=== PATIENT | male | born 1950 | race Caucasian/White ===

== ENCOUNTER 2020-04-03 10:53 | Emergency (ER) | payer MEDICARE ==
[~2020-04-03] VITALS: Ht 177.8 cm; Wt 113.6 kg
--- NOTE | 2020-04-03 11:05 | ED Head Injury ---
General Chief Complaint: Laceration Stated Complaint: HEAD LAC Source: patient Exam Limitations: no limitations History of Present Illness Date Seen by Provider: April 03, 2020 Time Seen by Provider: 11:03 Initial Comments Patient tripped and fell this morning striking his head with loss of consciousness he denies any other injury such as neck pain chest pain elbow arm shoulder knee hip or back pain he went to the urgent care clinic because of the concern about his loss of consciousness and his age he was sent for a CAT scan. His last tetanus was less than 10 years denies any other complaints at this time Additional history obtained family members called and said that the patient was witnessed to have a seizure which she has a known history of which she takes Keppra for. Had an extensive seizure workup in the past as well as some conside ration for cardiac syncope but he was witnessed to be having seizure activity Occurred: this morning Severity: mild Location: frontal, temporal Method of Injury: fell Loss of Consciousness: brief (seconds) Associated Systoms: Denies Symptoms Allergies and Home Medications Patient Home Medication List Home Medication List Reviewed: Yes Review of Systems Review of Systems Constitutional: no symptoms reported Eyes: No Symptoms Reported Ears, Nose, Mouth, Throat: no symptoms reported Respiratory: no symptoms reported Cardiovascular: no symptoms reported Gastrointestinal: no symptoms reported Genitourinary: no symptoms reported Skin: see HPI Physical Exam Vital Signs Vital Signs - First Documented 04/03/20 10:53 Temp 35.6 Pulse 67 Resp 18 B/P (MAP) 137/59 (85) Pulse Ox 95 O2 Delivery Room Air Capillary Refill : Height, Weight, BMI Height: '" Weight: lbs. oz. kg; BMI Method: General Appearance: WD/WN, no apparent distress HEENT: PERRL/EOMI, normal ENT inspection, TMs normal, pharynx normal Neck: non-tender, full range of motion, supple, normal inspection Cardiovascular: regular rate, rhythm, no edema, no murmur Respiratory: chest non-tender, lungs clear, normal breath sounds, no resp iratory distress Gastrointestinal: normal bowel sounds, non tender, soft Back: normal inspection Extremities: normal range of motion, non-tender, normal inspection, no pedal edema Procedures/Interventions Wound Location: Face Other Wound Location Left eyelid left eyebrow patient due to lacerations in the periorbital area 1 eyebrow that was 3.5 cm a 1 gist of the below the lateral canthus not involving the lid margin was about three quarters of a centimeter. There closed in a interrupted 5-0 Prolene nematic ointments applied suture removal device was given Wound Length (cm): 3 Wound's Depth, Shape: into muscle, linear Wound Explored: no foreign body removed Irrigated w/ Saline (ccs): 100 Betadine Prep?: No Anesthesia: Lidocaine w/ Epi Suture: Prolene Suture Size: 5-0 Sterile Dressing Applied?: No Progress/Results/Core Measures Results/Orders My Orders Orders - LEEANN SOLIS DO Ct Head Wo (04/03/20 11:02) Lidocaine/Epi 2% 1:100,000 (Xylocaine/Ep (04/03/20 11:26) Medications Given in ED Current Medications Medications Dose Ordered Sig/Lyle Route Start Time Stop Time Status Last Admin Dose Admin Lidocaine/ Epinephrine 20 ml STK-MED ONCE .ROUTE 04/03/20 11:26 04/03/20 11:34 DC 04/03/20 11:45 2 ML Vital Signs/I&O 04/03/20 10:53 Temp 35.6 Pulse 67 Resp 18 B/P (MAP) 137/59 (85) Pulse Ox 95 O2 Delivery Room Air Departure Impression Primary Impression: Fall Qualified Codes: W19.XXXA - Unspecified fall, initial encounter Additional Impression: Facial laceration Qualified Codes: S01.81XA - Laceration without foreign body of other part of head, initial encounter Disposition: 01 HOME, SELF-CARE Condition: Improved Departure-Patient Inst. Patient Instructions: Skin Abrasions (DC), Wound Care (DC), Laceration Repair With Stitches (DC) Add. Discharge Instructions: Keep wound clean wash daily apply topical antibiotic ointment such as Neosporin suture removal in approximately 6-7 days All discharge instructions reviewed with patient and/or family. Voiced understanding. LEEANN SOLIS DO April 03, 2020 11:05
--- NOTE | 2020-04-03 11:10 | NUR ---
WOUND WAS CLEANED WITH STERILE WATER AND SURGICAL SCRUB.
[2020-04-03] MEDS ORDERED: LIDOCAINE/EPI 2% 1:100,00 (XYLOCAINE) 20 ML VIAL ONE (11:26)
--- NOTE | 2020-04-03 11:28 | Diagnostic Imaging Report ---
INDICATION: Fall with trauma to the left orbital region TECHNIQUE: Routine non contrast-enhanced axial images were obtained from the skull base to the vertex. Auto Exposure Controls were utilized during the CT exam to meet ALARA standards for radiation dose reduction COMPARISON: None. FINDINGS: The ventricles and cortical sulci are diffusely prominent, compatible with age-related volume loss. There are confluent areas of abnormal, low attenuation in the periventricular white matter. This is consistent with small vessel ischemic changes; age-indeterminate. There is no prior study available for comparison. There is no midline shift or mass-effect. No acute intra-axial hemorrhage is seen. There are no abnormal areas of increased or decreased density to suggest acute hemorrhage or edema. No extra-axial masses or collections are present. There is small amount of soft tissue emphysema within the left supraorbital region. Underlying osseous structures are intact. The visualized paranasal sinuses show minimal scattered mucosal thickening. The mastoid air cells are clear. IMPRESSION: 1. No acute intracranial abnormality. No CT evidence of mass, acute infarct or intracranial hemorrhage. 2. Small vessel ischemic changes in the periventricular and subcortical white matter; likely chronic. Dictated by: Dictated on workstation # [id number]
--- NOTE | 2020-04-03 11:39 | NUR ---
Spoke w/ patient's who stated bystanders reported pt did not trip and he lost control of his bladder after fall. 2 men found pt on concrete. Pt's reports patient has recently been seen by Dr. Andersen at [place] for seizure work-up. Pt takes Keppra 500mg BID. ED physician notified.
--- OUTSIDE RECORDS SUMMARY | 2020-04-03 11:50 | XMS REPORT | Continuity of Care Document ---
Author Organization Unknown Address Unknown Phone Unavailable Allergies There is no data. Medications There is no data. Problems There is no data. Procedures There is no data. Results There is no data. Encounters ACCT No. Visit Date/Time Discharge Status Pt. Type Provider Facility Loc./Unit Complaint [id number] 01/11/2020 10:20:00 01/11/2020 23:59: 59 CLS Outpatient DELIO JERONIMO [facility]
--- NOTE | 2020-04-03 12:00 | NUR ---
TRIPLE ANTIBIOTIC OINTMENT APPLIED TO SUTURES/WOUNDS.
[2020-04-03 12:03] VITALS: BP 117/69
== END 2020-04-03 12:05 | disposition home or self-care (01) ==
LOC: ER FS 10:55
DX: S01.81XA Laceration without foreign body of other part of head, initial encounter (principal); W01.10XA Fall on same level from slipping, tripping and stumbling with subsequent striking against unspecified object, initial encounter
CPT/HCPCS: 12013; 70450

== ENCOUNTER 2020-04-09 18:15 | Emergency (ER) | payer MEDICARE ==
[2020-04-09 18:27] VITALS: BP 147/78
--- OUTSIDE RECORDS SUMMARY | 2020-04-09 20:37 | XMS REPORT | Continuity of Care Document ---
Author Organization Unknown Address Unknown Phone Unavailable Allergies There is no data. Medications There is no data. Problems Date Dx Coded Attending Type Code Diagnosis Diagnosed By 04/05/2020 LEEANN SOLIS DO Ot S01.81XA LACERATION W/O FOREIGN BODY OF OTH PART 04/05/2020 LEEANN SOLIS DO Ot W01.10XA FALL SAME LEV FROM SLIP/TRIP W STRIKE AG Procedures There is no data. Results There is no data. Encounters ACCT No. Visit Date/Time Discharge Status Pt. Type Provider Facility Loc./Unit Complaint [id number] 01/11/2020 10:20:00 01/11/2020 23:59: 59 CLS Outpatient DELIO JERONIMO LAC [facility] [id number] 04/03/2020 10:55:00 020 12:05:00 DIS Outpatient LEEANN SOLIS DO [facility] ER FS HEAD LAC
== END 2020-04-09 18:26 | disposition home or self-care (01) ==
LOC: EDUNIT# 18:15 → ER FS 18:17
DX: S01.112D Laceration without foreign body of left eyelid and periocular area, subsequent encounter (principal); X58.XXXD Exposure to other specified factors, subsequent encounter

== ENCOUNTER 2023-02-11 11:34 | Day surgery (SDC) | payer MEDICARE ==
[~2023-02-11] VITALS: Ht 177.8 cm; Wt 113.6 kg
[2023-02-11] VITALS (8 sets, daily range): BP systolic 92–168; BP diastolic 52–85
--- NOTE | 2023-02-11 11:41 | ED GI ---
General Chief Complaint: General Problems/Pain Stated Complaint: CHOKING History of Present Illness Date Seen by Provider: Feb 11, 2023 Time Seen by Provider: 11:39 Initial Comments 72-year-old male who presents with red meat stuck in his throat. Patient was eating ribs about an hour ago when it got stuck. He is unable to even keep any spit down. He has not vomited. He is not having shortness of breath. Allergies and Home Medications Allergies Coded Allergies: penicillin V (Verified Allergy, Unknown, 02/11/23) Patient Home Medication List Home Medication List Reviewed: Yes Review of Systems Review of Systems Constitutional: No chills, No fever EENTM: See HPI Respiratory: No Symptoms Reported Cardiovascular: No Symptoms Reported Gastrointestinal: See HPI Genitourinary: No Symptoms Reported Musculoskeletal: no symptoms reported Skin: no symptoms reported Psychiatric/Neurological: No Symptoms Reported Past Kwhtxvw-Xtwzgx-Njvnli Hx Seasonal Allergies Seasonal Allergies: No Past Medical History Surgeries: No Respiratory: No Cardiac: Yes High Cholesterol Neurological: No Genitourinary: No Gastrointestinal: No Musculoskeletal: No Endocrine: No HEENT: No Cancer: No Psychosocial: No Integumentary: No Blood Disorders: No Physical Exam Vital Signs Capillary Refill : Height/Weight/BMI Height: '" Weight: lbs. oz. kg; 35.00 BMI Method:Actual General Appearance: WD/WN, no apparent distress HEENT: other (Patient frequently spitting up his saliva, unable to swallow it) Neck: full range of motion, normal inspection Respiratory: lungs clear, normal breath sounds, no respiratory distress Cardiovascular: normal peripheral pulses, regular rate, rhythm Gastrointestinal: non tender, soft Neurologic/Psychiatric: no motor/sensory deficits, alert, normal mood/affect, oriented x 3 Procedures/Interventions Suture Size: 5-0 Progress/Results/Core Measures Results/Orders My Orders Orders - DARIEL CHOPRA DO Glucagon Emergency Kit (Glucagon Emergen (02/11/23 11:45) Progress Progress Note : Progress Note Patient with esophageal food bolus with inability to even swallow spit. Discussed with Dr. Roberts. Patient to be transferred to [facility] to outpatient surgery for EGD. Patient was given 1 mg glucagon IM prior to discharge. They will present directly to outpatient surgery via private vehicle. He was stable upon discharge Departure Impression Primary Impression: Impacted esophageal foreign body Qualified Codes: T18.108A - Unspecified foreign body in esophagus causing other injury, initial encounter Disposition: 30 STILL A PATIENT Condition: Stable Admissions Decision to Admit Reason: Admit from ER (General) Decision to Admit/Date: Feb 11, 2023 Time/Decision to Admit Time: 11:47 Departure-Patient Inst. Referrals: FELLOWS,HARLAN Roe MD (PCP) Primary Care Physician Add. Discharge Instructions: Please present directly to outpatient surgery for further evaluation and EGD by Dr. Roberts All discharge instructions reviewed with patient and/or family. Voiced understanding. DARIEL CHOPRA DO Feb 11, 2023 11:41
[2023-02-11] MEDS ORDERED: GLUCAGON EMERGENCY 1 MG/KIT IM ONE (11:45)
[2023-02-11] MEDS ORDERED: LACTATED RINGERS 1,000 ML IV PRN (13:30)
[2023-02-11] MEDS ORDERED: PROMETHAZINE INJ 25 MG/ML (PHENERGAN) AMP IVP ONE (15:15)
[2023-02-11] MEDS ORDERED: MIDAZOLAM 2 MG/2 ML (VERSED) VIAL IVP ONE (15:15)
[2023-02-11] MEDS ORDERED: PROMETHAZINE INJ 25 MG/ML (PHENERGAN) AMP ONE (15:19)
[2023-02-11] MEDS ORDERED: MIDAZOLAM 2 MG/2 ML (VERSED) VIAL ONE ×2 (15:19→16:01)
[2023-02-11] MEDS ORDERED: fentaNYL INJ 100 MCG/2 ML AMP ONE (15:42)
[2023-02-11] MEDS ORDERED: ATOR80TA76 PO (15:50)
[2023-02-11] MEDS ORDERED: MONT10TA21 PO (15:50)
[2023-02-11] MEDS ORDERED: ASPI-999 PO (15:54)
[2023-02-11] MEDS ORDERED: LIDOCAINE PF 2% 5 ML (XYLOCAINE) VIAL ONE (16:07)
[2023-02-11] MEDS ORDERED: proPOfol 200 MG/20 ML (DIPRIVAN) VIAL IV ONE (16:07)
[2023-02-11] MEDS ORDERED: SUCCINYLCHOLINE INJ 20 MG/1 ML 10 ML VIAL ONE (16:08)
--- NOTE | 2023-02-11 17:36 | Anesthesia-General Post-Op ---
General Patient Condition Mental Status/LOC: Same as Preop Cardiovascular: Satisfactory Nausea/Vomiting: Absent Respiratory: Satisfactory Pain: Controlled Complications: Absent Post Op Complications Complications None Follow Up Care/Instructions Patient Instructions None needed. Anesthesia/Patient Condition Patient Condition Patient is doing well, no complaints, stable vital signs, no apparent adverse anesthesia problems. No complications reported per nursing. NGOC RAMIREZ CRNA Feb 11, 2023 17:36
[2023-02-11] MEDS ORDERED: morphine INJ 10 MG/ML 1ML (SYR OR VIAL) IVP ONE (17:45)
[2023-02-11] MEDS ORDERED: ONDANSETRON 4 MG/2 ML (SDV) Z0FRAN IVP PRN (17:45)
[2023-02-11] MEDS ORDERED: MEPERIDINE (DEMEROL) INJ 50 MG/ML IVP ONE (17:45)
[2023-02-11] MEDS ORDERED: PANT40TA2 PO (17:52)
--- NOTE | 2023-02-11 18:03 | HISTORY AND PHYSICAL ---
ATTENDING PRIMARY CARE PHYSICIAN: Dr. Preeti Villafuerte. INDICATION: The patient is a 72-year-old male who states that he was eating ribs and then felt a substernal pressure sensation followed by dry heaving. Since that time, he has felt worsening chest pressure and has been unable to swallow his saliva consistent with an esophageal foreign body impaction. He states that he has had history of gastroesophageal reflux in the past and has had an upper endoscopy done, but this was over 20 years ago. He is currently not on any acid reduction medications. PAST MEDICAL HISTORY: Hypertension, hypercholesterolemia, coronary artery disease, gastroesophageal reflux disease. PAST SURGERIES: CABG x4 vessels, pacemaker implantation, laparoscopic cholecystectomy, open inguinal hernia repair. ALLERGIES: PENICILLIN V. MEDICATIONS: Atorvastatin 80 mg daily, aspirin 81 mg daily, Singulair p.r.n. SOCIAL HISTORY: Negative smoke, negative alcohol. FAMILY HISTORY: Father, myocardial infarction in his 50s. REVIEW OF SYSTEMS: Well-nourished male in no acute distress. He is not experiencing shortness of breath or difficulty breathing. He is feeling chest pressure and difficulty swallowing with an inability to swallow saliva. No hematemesis, no coffee-ground emesis. No change in bowel habits. No fever or chills. No recent inadvertent weight loss. All other review of systems negative. PHYSICAL EXAMINATION: CHEST: Few scattered rales bilaterally. HEART: Regular, no murmurs. EXTREMITIES: No lower extremity edema. Negative Homans sign. HEENT: No scleral icterus. No cervical lymphadenopathy. ABDOMEN: Soft, nontender, nondistended. No peritoneal signs. SKIN: Warm, dry. ASSESSMENT AND PLAN: A 72-year-old male with history of gastroesophageal reflux disease and symptomatic esophageal foreign body impaction. We will proceed with EGD and removal of foreign body as well as possible distal esophageal dilatation and biopsies as appropriate. Job ID: [id number] DocumentID: [id number] Dictated Date: 02/11/2023 16:07:10 Varnish Filterer Date: 02/11/2023 18:01:00 Dictated By: LOLITA MOREAU MD [facility]
--- NOTE | 2023-02-11 22:07 | OPERATIVE REPORT ---
DATE OF SERVICE: 02/11/2023 PREOPERATIVE DIAGNOSES: Dysphagia, esophageal foreign body, gastroesophageal reflux disease. POSTOPERATIVE DIAGNOSES: Esophageal foreign body, reflux esophagitis [place] grade C, distal esophageal stricture, small hiatal hernia, 1.5 cm in size, moderate to severe gastritis. PROCEDURE: EGD with removal of esophageal foreign body, biopsy, balloon dilatation. SURGEON: Lolita Moreau MD ANESTHESIA: General endotracheal. ESTIMATED BLOOD LOSS: Minimal. FINDINGS: Esophageal foreign body, reflux esophagitis [place] grade C, distal esophageal stricture, small hiatal hernia, 1.5 cm in size, moderate to severe gastritis. DISPOSITION: The patient tolerated the procedure well. INDICATIONS: The patient is a 72-year-old male who has had a history of gastroesophageal reflux disease. He states approximately 20 years ago, he had an upper endoscopy and was started on Tagamet and states that his symptoms improved over time and eventually he did not take any more acid reduction medications. He states that today he was eating ribs and then felt an acute onset of substernal pressure sensation and since that time, he has been unable to eat any more food as well as unable to swallow his own saliva consistent with an esophageal foreign body. He continues to have dry heaving, however, does not have any episodes of nausea, no vomiting. No hematemesis, no coffee-ground emesis. DESCRIPTION OF PROCEDURE: The patient was brought to the operating room, laid supine on the table. After adequate IV pain and sedative medications and general endotracheal intubation, the mouthpiece was applied. Endoscope was placed in the mouth visualizing the pharynx and hypopharyngeal region. Vocal cords, epiglottis and vallecula identified and appeared to be normal. Endoscope was then gently intubated in the esophageal opening and esophagus insufflated. The endoscope was then advanced through the first, second and third portion of esophagus. The esophageal foreign body was identified. We then proceeded with the over the scope suction device and we were able to piecemeal a good percentage of the foreign body this way. Once the over the scope suction was limited, we then proceeded with using a Johnson net again with piecemeal, removal of the esophageal foreign body. Several mL of regular Coke were then placed through the scope and left in place to allow for degradation of the meat for approximately 10 minutes and again we continued with piecemeal removal using the Johnson net until the remainder of the food bolus reduced on its own. Reflux esophagitis [place] grade C identified with distal esophageal stricture. A biopsy was taken with forceps with visualization of good hemostasis. The endoscope was then advanced into the stomach and endoscope retroflexed visualizing a small hiatal hernia approximately 1.5 cm in size. There was a moderate to severe gastritis, more towards the stomach antrum. A biopsy was taken of the antrum to rule out H. pylori with visualization of good hemostasis. The endoscope was then advanced to the pylorus and the first and second portion of the duodenum, which appeared normal with no distal obstructions. The balloon was then placed in the stomach and pulled back to the area of the stricture. We then proceeded with graded dilatation in a stepwise fashion from 2, 4, then eventually 5 atmospheres of pressure or approximately 19.5 mm in luminal diameter with moderate resistance and left this in place for approximately 60 seconds. The balloon was then desufflated and removed with visualization of good hemostasis as well as no mucosal tears. The endoscope was then slowly withdrawn while taking a second look and suctioning of residual air with no additional findings. The patient tolerated the procedure well. 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 We will also have him follow up in 6 weeks for a repeat dilatation for the goal of 20 mm. Job ID: [id number] DocumentID: [id number] Dictated Date: 02/11/2023 17:34:53 Experimental Electronics Developer Date: 02/11/2023 22:05:00 Dictated By: LOLITA MOREAU MD
== END 2023-02-11 19:59 | disposition home or self-care (01) ==
LOC: EDUNIT# 11:34 → ER FS 11:36 → SDC 12:53 → 4TH 18:23 → SDC 19:59
PROVIDERS: ATTEND Surgery
DX: T18.128A Food in esophagus causing other injury, initial encounter (principal); K22.2 Esophageal obstruction; K21.00 Gastro-esophageal reflux disease with esophagitis, without bleeding; K29.50 Unspecified chronic gastritis without bleeding; B96.81 Helicobacter pylori [H. pylori] as the cause of diseases classified elsewhere; K44.9 Diaphragmatic hernia without obstruction or gangrene; G47.33 Obstructive sleep apnea (adult) (pediatric); Z99.81 Dependence on supplemental oxygen
CPT/HCPCS: 87081; 88305; 99284